=== PATIENT | female | born 1995 | race Caucasian/White ===

== ENCOUNTER 2024-04-23 12:24 | Day surgery (SDC) | payer OTHER, SELFPAY ==
[2024-04-21 15:14] VITALS: BMI 24.8
[2024-04-23 13:27] VITALS: BP 111/73; PULSE 75; RESP 16; TEMP 36.7; O2SAT 100; BMI 23.2
[2024-04-23] MEDS: LACTATED RINGERS 1,000 ML 42 ML IV (14:04)
[2024-04-23] MEDS: ACETAMINOPHEN 325 MG TABLET 975 MG PO (14:06)
[2024-04-23] MEDS: SCOPOLAMINE 1 PATCH TOP (14:44)
--- NOTE | 2024-04-23 14:53 | PM.PREOP ---
Pre-operative Note Interval Note History & Physical reviewed/Exam performed by Physician: Yes Changes to H&P: No
--- NOTE | 2024-04-23 15:04 | SUR.OPER ---
Supine on padded OR bed, head on pillow, arms secured on padded arm boards at <90 degrees abduction, legs uncrossed, safety belt at thigh, tape over blanket over non op leg. operative leg resting on stack of blankets
--- NOTE | 2024-04-23 15:08 | PM.OP.1 ---
Operative Date/Time/Diagnoses Date of procedure: 04/23/24 Time of procedure: 15:09 Pre-op diagnosis: Osteochondral defect left talus Post-op diagnosis: same Procedure & Clinicians Procedure: Open treatment osteochondral defect left talus CPT code 53997 Aspiration bone marrow iliac crest CPT code 93085 +59 Same procedure as scheduled: Yes Indications: 28-year-old female with left ankle pain locking and mechanical symptoms and osteochondral lesion. Worsening pain with previous microfracture procedure. MRI indicates critical size osteochondral defect with marrow edema subchondral collapse and undercutting. Corresponds with symptoms. She was indicated for open arthrotomy and allograft cartilage with bone marrow aspirate for OCL repair. We discussed possible need for a medial malleolar osteotomy. The risks and benefits of the procedure have been discussed with the patient and given the opportunity to ask questions. The risks of surgery include but are not limited to infection, malunion, nonunion, persistence of pain, damage to nerves and blood vessels, posttraumatic arthritis, DVT, PE, cardiopulmonary complications and . The patient expressed a thorough understanding of the risks and benefits of surgery and has elected to proceed. Consent was signed During the operation, the services of a physician certified surgical tech/first assistant were medically indicated and necessary to provide the exposure of the operative site for the surgical procedure and to maintain the limb in a proper position to carry out the operation safely and efficiently. Without a qualified assistant men's lacrosse coach being present this would extended the operative procedure and made the procedure technically more difficult to perform. Surgeon: Elsie James Back Tender Paper Machine: Jc Pleitez Anesthesia Type: General, Peripheral nerve block and Local Operative Notes Findings: Shoulder lesion, osteochondral defect medial talus dome did way to posterior anterior to posterior 1.2 cm by 8 mm wide with shoulder involvement and displaced unstable cartilage fragments. This was debrided to a stable border and allograft cartilage mixed with bone marrow aspirate was applied. Closure Type: primary Specimen(s): none sent Prosthetic devices, grafts, tissues, transplants, or devices: Articular cartilage allograft 1 cc, Arthrex bio cartilage Estimated Blood Loss (mL): 5 Blood products transfused: none Tourniquet time (min): 60 Procedure in detail: The patient was seen in the preoperative area the site of surgery marked informed consent confirmed. This was for the left ankle in the left ankle was marked. The patient was taken to the operating room by the anesthesia team a regional block was placed for postoperative pain control. Patient was positioned in supine position general anesthesia was administered. A well-padded thigh tourniquet was applied on the left lower extremity. The left lower extremity prepped and draped in standard sterile fashion a formal time-out procedure was performed confirming the patient's side and site of surgery administration appropriate preoperative antibiotic all were in agreement. Attention turned to the left lower extremity 1st the left hip was addressed the iliac crest was isolated small stab incision was made on the anterior iliac crest. The bone marrow aspirate trocar was taken down to the level of the bone and impacted into the iliac crest. 60 cc of bone marrow aspirate was obtained. This incision was then closed with 1x 3-0 nylon stitch. 10 cc of 0.25% Marcaine with epinephrine were injected for local anesthetic. Attention was then turned distally to the left lower extremity. The 60 cc of bone marrow aspirate was handed off to run through the [employer] system to create BMAC for mixture with the allograft cartilage Esmarch was used to exsanguinate the lower extremity and the tourniquet on the thigh was raised to 250 mmHg. A anteromedial arthrotomy incision was made just medial to the tibialis anterior tendon at the ankle and taken down to the level of the capsule capsule was entered and the tibiotalar joint was exposed. The ankle joint was exposed and brought into terminal plantar flexion to bring the osteochondral lesion into view. This was adequately visualized, therefore the ankle wire distractor was used to hold this position curette were used to remove the unstable cartilage from the medial osteochondral lesion. Once a good bleeding subchondral bone was obtained the defect was measured. The cartilage allograft and bone marrow aspirate combination was then prepared. The osteochondral debrided-there was noted unstable cartilage this was debrided with a curette and then the bone was debrided as well. Total defect was approximately 1.2 cm in length anterior to posterior and 8 cm medial to lateral and did encompass the medial shoulder. And the cartilage allograft and bone marrow aspirate laid into the defect. Care was taken to make sure this was not proud. Then this was covered with the fibrin glue and allowed to set for 5 minutes --1st attempt the fibrin glue came out in a glob and then needed to be removed so the cartilage graft was removed the graft site was once debrided and dried and the graft we applied followed by the fibrin glue. This was held in plantar flexion and distraction and allowed to dry. Once this was completed the ankle was taken through range of motion was stable and the graft site was not proud. Intraoperative fluoroscopy was taken in AP and lateral planes. Next the tourniquet was released hemostasis was achieved capsule was closed with 0 Vicryl suture subcutaneous with 2-0 Vicryl then 4-0 Monocryl and 3-0 nylon suture. Ligamentous examination was stable. A sterile dressing was applied with Xeroform gauze Webril an Dave wrap and a well-padded U splint. The patient was awoken from anesthesia taken to recovery room in good condition there were no immediate complications from the procedure. Counts were correct. Complications: none Post-operative Condition: stable Disposition: PACU Plan for aftercare: Nonweightbearing left lower extremity x4 weeks Follow up in [facility] in 2-3 weeks. That time she will switch to a Cam boot start gentle range of motion. Progressive weight-bearing we will start after 4 weeks. Aspirin for DVT prophylaxis x6 weeks.
--- NOTE | 2024-04-23 15:23 | SUR.PREOP ---
Block start time [1509] . time out 1507 Monitoring initiated and maintained throughout procedure. Oxygen and medications given per anesthesiologist instructions. Patient remained stable throughout procedure, no adverse reactions noted. Block end time [1521].
[2024-04-23] MEDS: CEFAZOLIN 2 GM/100 ML PREMIX 100 ML IV (15:36)
[2024-04-23] MEDS: BUPIVACAINE 0.25% W/ EPI 30 ML VIAL 60 ML INJ (15:53)
[2024-04-23 17:41] VITALS: BP 97/48; PULSE 103; RESP 19; TEMP 36.2; O2SAT 100
[2024-04-23 17:44] VITALS: BP 101/55; PULSE 73; RESP 26; O2SAT 100
[2024-04-23 17:50] VITALS: BP 94/49; PULSE 80; RESP 26; O2SAT 99
[2024-04-23 17:56] VITALS: BP 93/50; PULSE 88; RESP 21; TEMP 36.7; O2SAT 99
[2024-04-23] MEDS: ONDANSETRON 4 MG/2 ML INJ IV (18:00)
[2024-04-23] MEDS: hydrOXYzine 50 MG/ML INJ 25 MG IM (18:12)
[2024-04-23 18:32] VITALS: BP 91/57; PULSE 72; RESP 12; TEMP 36.7; O2SAT 100
== END 2024-04-23 19:10 | disposition home or self-care (01) ==
PROVIDERS: Referring Provider Orthopaedic Surgery Foot and Ankle Surgery; Visit Provider Orthopaedic Surgery Foot and Ankle Surgery
PROC: (CPT 28446; principal; 2024-04-23 14:45)
DX: M93.272 Osteochondritis dissecans, left ankle and joints of left foot (principal)
CPT/HCPCS: 28446; 20999; 64450; 81025; C1889; J0330; J0690; J1100; J1171; J1644; J2250; J2405; J2704; J3010; J3410